=== PATIENT | male | born 2000 | race African-American/Black ===

== ENCOUNTER 2021-08-06 03:43 | Emergency (ER) | payer OTHER ==
[~2021-08-06] VITALS: Ht 177.8 cm; Wt 61.0 kg
[2021-08-06 04:22] LABS: BASOPHILS % 0.6 % (0.0-2.0); EOSINOPHILS % 0.7 % (0.0-5.0); HEMOGLOBIN. 14.6 g/dL (14.0-18.0); LYMPHOCYTES % 37.6 % (20.0-50.0); MEAN CORPUSCULAR VOLUME 90.5 fL (80.0-94.0); MEAN PLATELET VOLUME 9.3 fl (7.4-10.4); NEUTROPHILS % 56.1 % (40.0-76.0); PLATELET 265 x1000/uL (130-400); RED BLOOD CELL COUNT 4.87 mill/uL (4.7-6.1); RED CELL DISTRIBUTION WIDTH 13.2 % (11.6-14.6)
[2021-08-06] MEDS ORDERED: DIPHENHYDRAMINE 50MG/ML VIAL IV ONE (04:30)
[2021-08-06] MEDS ORDERED: FAMOTIDINE 20MG/2ML VIAL IV ONE (04:30)
[2021-08-06] MEDS ORDERED: METHYLPREDNISOLONE SOD SUCC 125 MG/2 ML VIAL IV ONE (04:30)
[2021-08-06] MEDS ORDERED: SODIUM CHLORIDE 0.9% 1,000 ML IV ONE (04:30)
[2021-08-06 04:31] LABS: CHLORIDE 106 mEq/L (98-107)
[2021-08-06] MEDS ORDERED: POTASSIUM CHLORIDE 20MEQ TABLET SR PO ONE ×2 (05:00→05:15)
[2021-08-06] MEDS ORDERED: ONDANSETRON HCL 4MG/2ML INJ IV ONE (05:15)
[2021-08-06 06:30] VITALS: BP 94/64
[2021-08-06] MEDS ORDERED: POTA20TA82 MT (06:34)
[2021-08-06] MEDS ORDERED: DIPH25CA83 MT (06:34)
[2021-08-06] MEDS ORDERED: P20 MT (06:34)
== END 2021-08-06 06:59 | disposition home or self-care (01) ==
LOC: ER 03:43
DX: R00.0 Tachycardia, unspecified (principal); E87.6 Hypokalemia; F12.10 Cannabis abuse, uncomplicated; T43.295A Adverse effect of other antidepressants, initial encounter; Y92.018 Other place in single-family (private) house as the place of occurrence of the external cause
CPT/HCPCS: 36415; 71045; 80053; 80320; 85025; 93005; 96374; 96375; 99285; J1200; J2405; J2930; J3490; J7030; G0480